=== PATIENT | male | born 1940 | race Caucasian/White ===

== ENCOUNTER → 2017-03-14 09:16 | Outpatient (CLI) | payer MEDICARE ==
[2016-05-10 10:00] VITALS: BMI 22.4
[~2017-03-14 09:16] MED LIST: AMITRIPTYLINE H50 MG PO; ASPIRIN325 MG PO; BAYER CHEWABLE81 MG PO; CARAFATE1 G PO; CARAFATE1 G/10 ML PO; COLACE100 MG PO; COMBIVENT RESPIM4 GM INH; ELAVIL10 MG PO; FERROUS SULFAT325 MG PO; FISH OIL 1,0001 CA1 PO; FISH OIL 1,2001 CA1 PO; FLOMAX0.4 MG PO; FLORINEF 0.1 M0.1 MG PO; GLUCOPHAGE500 MG PO; K-DUR20 MEQ PO; KLOR-CON M2020 MEQ PO; LEVAQUIN500 MG PO; MULTI-DAY VITAM1 TAB PO; NITROSTAT0.4 MG; NUCYNTA50 MG PO; PEPCID40 MG PO; PLAVIX75 MG PO; PROAMATINE2.5 MG PO; PROSCAR5 MG PO; PROTONIX40 MG PO; REMERON15 MG PO; REQUIP0.5 MG PO; SINGULAIR10 MG PO; TOPAMAX25 MG PO; ULTRAM50 MG PO; XANAX0.25 MG PO; ZOCOR40 MG PO
== END | disposition home or self-care (01) ==
LOC: D.CT 09:00
DX: R10.84 Generalized abdominal pain (principal)